=== PATIENT | male | born 1995 | race Caucasian/White ===

== ENCOUNTER 2017-01-29 16:33 | Emergency (ER) | payer BC ==
[2017-01-29 16:41] VITALS: BP 144/66
--- NOTE | 2017-01-29 17:04 | UC ---
Complaint Male HPI - HPI Summary HPI Summary: ONSET OF MILD LEFT TESTICLE TENDERNESS ABOUT 20 MIN RN PATIENT CARE. THOUGHT THE LEFT TESTICLE LOOKED "BACKWARDS". SINCE BEING HERE THE PAIN HAS IMPROVED AND THE TESTICLE LOOKS "NORMAL" NOW. DENIES FEVER, NAUSEA OR ANY URINARY SX. PT IS VERY ACTIVE. DOES A LOT OF PHYSICAL ACTIVITY INCLUDING RUNNING AND POLE VAULTING. - History of Current Complaint Chief Complaint: UCGU Stated Complaint: PERSONAL Time Seen by Provider: 01/29/17 16:44 Hx Obtained From: Patient Onset/Duration: Sudden Onset, Lasting Minutes, Resolved Severity Initially: Mild Severity Currently: Mild Pain Intensity: 5 Pain Scale Used: 0-10 Numeric Location: Testicle - LEFT Aggravating Factor(s): Nothing Associated Signs And Symptoms: Positive: Negative - Allergies/Home Medications Allergies/Adverse Reactions: Allergies Allergy/AdvReac Type Severity Reaction Status Date / Time Amoxicillin Allergy Mild Rash Verified 01/29/17 16:41 cat dander Allergy Intermediate Eyes Uncoded 01/29/17 16:41 Itchy/Swollen/Red/Watery dust mites Allergy Intermediate Eyes Uncoded 01/29/17 16:41 Itchy/Swollen/Red/Watery PMH/Surg Hx/FS Hx/Imm Hx Respiratory History: Asthma - Surgical History Surgical History: Yes Surgery Procedure, Year, and Place: Ear tubes placed and removed when little. Adenoids out Feb 2002 - Family History Known Family History: Positive: Unknown - pt not sure about his family history - Social History Alcohol Use: Rare Substance Use Type: None Smoking Status (MU): Never Smoked Tobacco - Immunization History Vaccination Up to Date: Yes Review of Systems Constitutional: Negative Respiratory: Negative Cardiovascular: Negative Gastrointestinal: Negative Genitourinary: Other - LEFT TESTICLE PAIN All Other Systems Reviewed And Are Negative: Yes Physical Exam Triage Information Reviewed: Yes Appearance: Well-Appearing, No Pain Distress, Well-Nourished Vital Signs: Initial Vital Signs Temp 99.3 F 01/29/17 16:37 Pulse 70 01/29/17 16:37 Resp 12 01/29/17 16:37 BP 144/66 01/29/17 16:37 Pulse Ox 100 01/29/17 16:37 Vital Signs Reviewed: Yes Eyes: Positive: Conjunctiva Clear ENT: Positive: Hearing grossly normal Neck: Positive: Supple Respiratory: Positive: No respiratory distress, No accessory muscle use Cardiovascular: Positive: Pulses Normal Abdomen Description: Positive: Nontender, Soft. Negative: CVA Tenderness (R), CVA Tenderness (L), Distended, Guarding Musculoskeletal: Positive: No Edema Neurological: Positive: Alert Psychological: Positive: Age Appropriate Behavior Skin: Negative: rashes UC Physical Exam Vital Signs On Initial Exam: Initial Vitals Temp Pulse Resp BP Pulse Ox 99.3 F 70 12 144/66 100 01/29/17 16:37 01/29/17 16:37 01/29/17 16:37 01/29/17 16:37 01/29/17 16:37 - Genitalia Exam Male Genitalia: Circumcised, Other - NO EVIDENCE OF TORSION. Male Genitalia Cont.: Bilateral: Testicles Descended, Testicles Non-Tender, Scrotum Non-Tender, Scrotum Without Erythema Diagnostics - Laboratory Diagnostic Studies Completed/Ordered: URINE DIP TRACE LEUKS Complaint Male Course/Dx - Course Course Of Treatment: NORMAL EXAM TODAY. PT AGREES THAT THINGS NOW LOOK NORMAL AND THAT THE PAIN IS IMPROVED. ADVISED THAT HE COULD HAVE INTERMITTENT TORSION AND SHOULD FOLLOW-UP WITH UROLOGY TOMORROW. GO TO THE ER WITHOUT FAIL IF SX RECUR. - Differential Dx/Diagnosis Provider Diagnoses: LEFT TESTICLE PAIN Discharge - Discharge Plan Condition: Stable Disposition: HOME Patient Education Materials: Testicle Pain (ED) Referrals: Matthew Green MD [Medical Doctor] - 1 Day Additional Instructions: NO EVIDENCE OF TORSION ON EXAM TODAY. CALL UROLOGY FIRST THING TOMORROW MORNING FOR A FOLLOW-UP APPT. GO TO THE ER WITHOUT FAIL IF YOUR SYMPTOMS OF PAIN AND/OR POSSIBLE TWISTING DEVELOP OR IF ANYTHING ELSE CONCERNING DEVELOPS. TORSION IS AN EMERGENT CONDITION AND NEEDS IMMEDIATE INTERVENTION. CALL THE NUMBER BELOW FOR ASSISTANCE IN ESTABLISHING WITH A PCP An additional resource available to assist in finding the appropriate physician for your health care needs is [facility] ([facility]). You may contact them by calling [phone].
== END 2017-01-29 17:13 | disposition home or self-care (01) ==
LOC: UCEAST 16:33
DX: N50.812 Left testicular pain (principal); Z88.3 Allergy status to other anti-infective agents; J45.909 Unspecified asthma, uncomplicated
CPT/HCPCS: 81003; 87086; 99211; G0463